=== PATIENT | female | born 1970 | race American Indian/Alaskan Native ===

== ENCOUNTER 2017-01-01 18:09 | Emergency (ER) | payer MEDICAID, OTHER ==
[2017-01-01 18:23] VITALS: TEMP 98.9; O2SAT 96; BMI 27.3
--- NOTE | 2017-01-01 18:54 | ED PDOC ---
Arrival/HPI <Mario Cedeno - Last Filed: 01/01/17 18:44> <Fran Atkins - Last Filed: 01/01/17 20:43> - General Chief Complaint: Back Pain Time Seen by Provider: 01/01/17 18:13 - History of Present Illness Narrative History of Present Illness (Text): 01/01/17 18:44 46 year old female with a pmh of Graves disease (s/p thyroidectomy) and IDDM. She is complaining of right sided low back pain that starts above her hip that radiates down the back of her thigh into the back of her calf. The pain started about a week ago but has been progressively gotten worse. The pain is throbbing in nature but becomes sharp with any kind of movement. The patient has experienced this pain in the past. One to two years ago, the patient was seen at [facility] in [place] for the same problem. She got a CT and MRI, which she reports, showed that she had a bulging disc in her low back. The patient is only in town due to her mother's . She has an appointment with her primary care doctor back home on Wednesday at 11am. She has taken Advil and Tylenol for the pain, but neither helped. She took one Percocet given to her by her aunt that allowed her to walk for a few hours. Patient is coming into the emergency room because she can not tolerate the pain any longer. (Mario Cedeno) Associated Symptoms (Text): 01/01/17 19:02 Seen and examined with the resident. Our history and physical exam reveals a woman who complains of approximately one week history of right lower back pain with radiation into her right buttocks and right lower extremity posteriorly. There is some numbness but no weakness. No bowel or bladder dysfunction. She is here visiting from [place] for a . She reports that approximately one year ago she had an MRI which showed a positive HNP. No injury or trauma. No abdominal pain nausea vomiting or diarrhea. No genitourinary symptoms. ( Fran Atkins) Past Medical History - Provider Review Nursing Documentation Reviewed: Yes - Infectious Disease Hx of Infectious Diseases: None - Reproductive Menopause: Yes - Cardiac Hx Cardiac Disorders: Yes Hx Hypertension: Yes - Pulmonary Hx Respiratory Disorders: No - Neurological Hx Neurological Disorder: No Hx Alzheimer's Disease: No - HEENT Hx HEENT Disorder: No - Renal Hx Renal Disorder: No - Endocrine/Metabolic Hx Endocrine Disorders: Yes Hx Diabetes Mellitus Type 2: Yes Hx Hypothyroidism: Yes - Hematological/Oncological Hx Blood Disorders: Yes Hx Cancer: Yes (cx of the vulva) - Integumentary Hx Dermatological Disorder: No - Musculoskeletal/Rheumatological Hx Musculoskeletal Disorders: Yes Hx Back Pain: Yes - Gastrointestinal Hx Gastrointestinal Disorders: Yes Other/Comment: multiple abdominal surgeries on adhesions in the stomach - Genitourinary/Gynecological Hx Genitourinary Disorders: No - Psychiatric Hx Psychophysiologic Disorder: No Hx Substance Use: No - Surgical History Hx Appendectomy: Yes Hx Cholecystectomy: Yes Hx Thyroidectomy: Yes (total) Other/Comment: multiple abdominal sx for adhesions on the stomach - Anesthesia Hx Anesthesia: Yes Hx Anesthesia Reactions: No <Mario Cedeno - Last Filed: 01/01/17 18:44> Family/Social History - Physician Review Nursing Documentation Reviewed: Yes Family/Social History: Unknown Family HX Smoking Status: Current Some Days Smoker Hx Alcohol Use: No Hx Substance Use: No <Mario Cedeno - Last Filed: 01/01/17 18:44> Allergies/Home Meds <Mario Cedeno - Last Filed: 01/01/17 18:44> <Fran Atkins - Last Filed: 01/01/17 20:43> Allergies/Adverse Reactions: Allergies aspirin Allergy (Intermediate, Verified 01/01/17 18:23) URTICARIA Penicillins Allergy (Intermediate, Verified 01/01/17 18:23) RASH Home Medications: Home Meds Medication Instructions Recorded Confirmed Enalapril/Hydrochlorothiazide 10 mg PO DAILY 01/01/17 01/01/17 [Enalapril-Hctz 10-25 mg Tablet] Insulin Aspart, Recombinant 20 units SC DAILY 01/01/17 01/01/17 [Novolog] Insulin Glargine, Recombina 12 units SC HS 01/01/17 01/01/17 [Lantus] Levothyroxine [Synthroid] 1 tab PO DAILY 01/01/17 01/01/17 Review of Systems - Physician Review All systems were reviewed & negative as marked: Yes - Review of Systems Constitutional: absent: Fatigue, Fevers Respiratory: absent: SOB, Cough Cardiovascular: absent: Chest Pain, Edema, Calf Pain Gastrointestinal: absent: Abdominal Pain, Constipation, Diarrhea, Nausea, Vomiting Genitourinary Female: absent: Dysuria, Frequency Musculoskeletal: Back Pain (right sided, low back pain) Skin: Normal Neurological: Headache (hx of migraines) Endocrine: absent: Diaphoresis Psychiatric: Depression (mother passed this week, in town for ) <Mario Cedeno - Last Filed: 01/01/17 18:44> Physical Exam Vital Signs Reviewed: Yes Temperature: Afebrile Blood Pressure: Hypertensive (believed to be 2/2 pain) Pulse: Tachycardic (believed to be 2/2 pain) Respiratory Rate: Normal Appearance: Positive for: Well-Appearing, Non-Toxic, Comfortable Pain Distress: None Mental Status: Positive for: Alert and Oriented X 3 - Systems Exam Head: Present: Atraumatic, Normocephalic Extroacular Muscles: Present: EOMI Conjunctiva: Present: Normal Mouth: Present: Moist Mucous Membranes. No: Dry Nose (External): Present: Atraumatic Nose (Internal): No: Normal Inspection Neck: Present: Normal Range of Motion. No: JVD Respiratory/Chest: Present: Clear to Auscultation. No: Respiratory Distress, Accessory Muscle Use Cardiovascular: Present: Regular Rate and Rhythm Abdomen: No: Tenderness, Distention, Peritoneal Signs Back: Present: Pain with Leg Raise (pain on right side with leg b/l; never pain on left side). No: CVA Tenderness, Midline Tenderness, Paraspinal Tenderness Upper Extremity: Present: Normal Inspection, NORMAL PULSES. No: Edema Lower Extremity: Present: Normal Inspection, NORMAL PULSES, Capillary Refill < 2 s. No: Edema, CALF TENDERNESS, Tenderness Neurological: Present: GCS=15 Skin: Present: Warm, Dry, Normal Color Psychiatric: Present: Alert, Oriented x 3, Normal Insight, Normal Concentration <Mario Cedeno - Last Filed: 01/01/17 18:44> Medical Decision Making <Mario Cedeno - Last Filed: 01/01/17 18:44> <Fran Atkins - Last Filed: 01/01/17 20:43> ED Course and Treatment: 01/01/17 19:00 Known hx of Sciatica and bulging disc -Given flexeril and Torodal for pain while in ED Dispo: Home. Patient is going to keep her appointment and follow up with her PMD on Wednesday, Jan. at 11am (Mario Cedeno) 01/01/17 19:11 Patient Seen With Resident: In agreement with resident note and more details are present in their notes. Patient was seen and evaluated with resident, came up with plan and treatment together. 01/01/17 19:39 Pain is unchanged. Morphine was ordered. 01/01/17 20:37 Symptoms are markedly improved after morphine and Benadryl. 01/01/17 20:38 Blood pressure is improved to 131/77. Discharged home accompanied by . Follow-up with PMD. Follow up in ER as needed. (Fran Atkins) - Medication Orders Current Medication Orders: Discontinued Medications Cyclobenzaprine HCl (Flexeril) 10 mg PO STAT STA Stop: 01/01/17 18:51 Last Admin: 01/01/17 19:16 Dose: 10 mg Diphenhydramine HCl (Benadryl) 50 mg PO STAT STA Stop: 01/01/17 19:50 Last Admin: 01/01/17 19:54 Dose: Not Given Non-Admin Reason: Patient Refused Diphenhydramine HCl (Benadryl) Confirm Administered Dose 50 mg .ROUTE .STK-MED ONE Stop: 01/01/17 19:58 Last Admin: 01/01/17 19:59 Dose: 50 mg Ketorolac Tromethamine (Toradol) 60 mg IM ONCE ONE Stop: 01/01/17 18:48 Last Admin: 01/01/17 19:17 Dose: 60 mg Morphine Sulfate (Morphine) 4 mg IM STAT STA Stop: 01/01/17 19:40 Last Admin: 01/01/17 19:58 Dose: 4 mg Disposition/Present on Arrival - Present on Arrival History of DVT/PE: No History of Uncontrolled Diabetes: No Urinary Catheter: No History of Decub. Ulcer: No History Surgical Site Infection Following: None <Mario Cedeno - Last Filed: 01/01/17 18:44> - Present on Arrival Any Indicators Present on Arrival: No History of DVT/PE: No History of Uncontrolled Diabetes: No Urinary Catheter: No History of Decub. Ulcer: No - Disposition Have Diagnosis and Disposition been Completed?: Yes Disposition Time: 20:39 Patient Plan: Discharge <Fran Atkins - Last Filed: 01/01/17 20:43> - Disposition Diagnosis: Sciatica Disposition: HOME/ ROUTINE Condition: IMPROVED Discharge Instructions (ExitCare): Sciatica (ED), Lumbar Radiculopathy (ED) Additional Instructions: Rest and moist heat. Follow-up with PMD. Follow up in ER as needed. Prescriptions: Dexamethasone [Decadron] 4 mg PO DAILY #5 tab Cyclobenzaprine [Flexeril] 5 mg PO Q8 #15 tab oxyCODONE/Acetaminophen [Percocet 5/325 mg Tab] 1 ea PO Q6 #15 tab Referrals: [facility] Thania Rhodes, [Primary Care Provider] - Follow up with primary Forms: [employer] (Ecuadorean)
[2017-01-01] MEDS ORDERED: Morphine 4 mg/ml ISec IM STA (19:39)
[2017-01-01] MEDS ORDERED: DiphenhydrAMINE 50 mg/ml Inj ONE (19:57)
[2017-01-01 20:39] VITALS: BP 131/77; PULSE 88; RESP 18
== END 2017-01-01 21:05 | disposition home or self-care (01) ==
LOC: ED 18:09
DX: M54.30 Sciatica, unspecified side (principal)
CPT/HCPCS: 96372; 99283; J1200; J1885; J2270

== ENCOUNTER 2017-03-04 09:26 | Emergency (ER) | payer MEDICAID ==
[2017-03-04 09:27] VITALS: BMI 27.3
[2017-03-04 09:54] VITALS: TEMP 98.3; O2SAT 100
[2017-03-04] MEDS ORDERED: HYDROmorphone 0.5 mg/0.5 ml ISec IM STA (10:21)
--- NOTE | 2017-03-04 10:22 | ED PDOC ---
Arrival/HPI - General Chief Complaint: Back Pain Time Seen by Provider: 03/04/17 09:34 Historian: Patient, Partner - History of Present Illness Narrative History of Present Illness (Text): 03/04/17 10:15 46 year old female with a pmh of , chronic lower back pain, Graves disease (s/p thyroidectomy) and IDDM, presents to this ED c/o right lower back pain x 1 day. Patient stated she tripped and fell down this morning. Patient denies weakness, paresthesias, GI/ incontinence, saddle anesthesia, urinary retention , or abnormal gait. Time/Duration: Other (1 day) Quality: Aching Context: Home Past Medical History - Provider Review Nursing Documentation Reviewed: Yes - Infectious Disease Hx of Infectious Diseases: None - Cardiac Hx Cardiac Disorders: Yes - Pulmonary Hx Respiratory Disorders: No - Neurological Hx Neurological Disorder: No Hx Alzheimer's Disease: No - HEENT Hx HEENT Disorder: No - Renal Hx Renal Disorder: No - Endocrine/Metabolic Hx Endocrine Disorders: Yes Hx Diabetes Mellitus Type 2: Yes Hx Hypothyroidism: Yes - Hematological/Oncological Hx Blood Disorders: Yes Hx Cancer: Yes (cx of the vulva) - Integumentary Hx Dermatological Disorder: No - Musculoskeletal/Rheumatological Hx Musculoskeletal Disorders: Yes Hx Back Pain: Yes - Gastrointestinal Hx Gastrointestinal Disorders: Yes Other/Comment: multiple abdominal surgeries on adhesions in the stomach - Genitourinary/Gynecological Hx Genitourinary Disorders: No - Psychiatric Hx Psychophysiologic Disorder: No Hx Substance Use: No - Surgical History Hx Appendectomy: Yes Hx Cholecystectomy: Yes Hx Thyroidectomy: Yes (total) Other/Comment: multiple abdominal sx for adhesions on the stomach - Anesthesia Hx Anesthesia: Yes Hx Anesthesia Reactions: No Family/Social History - Physician Review Nursing Documentation Reviewed: Yes Family/Social History: Other (noncontributory) Smoking Status: Light Smoker < 10 Cigarettes Daily Hx Alcohol Use: No Hx Substance Use: No Allergies/Home Meds Allergies/Adverse Reactions: Allergies aspirin Allergy (Intermediate, Verified 03/04/17 09:43) URTICARIA Penicillins Allergy (Intermediate, Verified 03/04/17 09:43) RASH Home Medications: Home Meds Medication Instructions Recorded Confirmed Enalapril/Hydrochlorothiazide 10 mg PO DAILY 01/01/17 03/04/17 [Enalapril-Hctz 10-25 mg Tablet] Insulin Aspart, Recombinant 20 units SC DAILY 01/01/17 03/04/17 [Novolog] Insulin Glargine, Recombina 12 units SC HS 01/01/17 03/04/17 [Lantus] Levothyroxine [Synthroid] 1 tab PO DAILY 01/01/17 03/04/17 Cyclobenzaprine [Flexeril] 5 mg PO PRN PRN 03/04/17 03/04/17 Review of Systems - Review of Systems Constitutional: Normal. absent: Fatigue, Weight Change, Fevers Eyes: Normal ENT: Normal Respiratory: Normal. absent: SOB, Cough Cardiovascular: Normal. absent: Chest Pain, Palpitations Gastrointestinal: Normal. absent: Abdominal Pain, Nausea, Vomiting Genitourinary Female: Normal. absent: Dysuria, Frequency, Hematuria Musculoskeletal: Back Pain Skin: Normal. absent: Rash, Pruritis, Skin Lesions, Laceration, Abscess, Ulcer , Cellulitis Neurological: Normal. absent: Headache, Dizziness, Focal Weakness, Gait Changes , Speech Changes, Facial Droop, Disequilibrium, Seizure Endocrine: Normal Hemo/Lymphatic: Normal Psychiatric: Normal Physical Exam Vital Signs Temp Pulse Resp BP Pulse Ox 03/04/17 12:24 81 18 125/74 100 03/04/17 11:10 89 18 128/79 100 03/04/17 09:38 98.3 F 92 H 16 132/82 100 Temperature: Afebrile Blood Pressure: Normal Pulse: Regular Respiratory Rate: Normal Appearance: Positive for: Well-Appearing, Non-Toxic, Comfortable Pain Distress: None Mental Status: Positive for: Alert and Oriented X 3 - Systems Exam Head: Present: Atraumatic, Normocephalic Pupils: Present: PERRL Extroacular Muscles: Present: EOMI Conjunctiva: Present: Normal Mouth: Present: Moist Mucous Membranes Neck: Present: Normal Range of Motion, Trachea Midline. No: Meningeal Signs, MIDLINE TENDERNESS Respiratory/Chest: Present: Clear to Auscultation, Good Air Exchange. No: Respiratory Distress, Accessory Muscle Use Cardiovascular: Present: Regular Rate and Rhythm, Normal S1, S2. No: Murmurs Abdomen: Present: Normal Bowel Sounds. No: Tenderness, Distention, Peritoneal Signs Back: Present: Paraspinal Tenderness (mild muscle spasm, and tenderness on right paravertebral area. No skin rash, erythema,. or ecchymosis. No vertebral point tenderness. No vertebral step off.). No: CVA Tenderness, Midline Tenderness Upper Extremity: Present: Normal Inspection, Normal ROM, NORMAL PULSES, Neurovascularly Intact, Capillary Refill < 2s. No: Cyanosis, Edema Lower Extremity: Present: Normal Inspection, NORMAL PULSES, Normal ROM, Neurovascularly Intact, Capillary Refill < 2 s. No: Edema, CALF TENDERNESS Neurological: Present: GCS=15, CN II-XII Intact, Speech Normal, Motor Func Grossly Intact, Normal Sensory Function, Normal Cerebellar Funct, Gait Normal, Memory Normal Skin: Present: Warm, Dry, Normal Color. No: Rashes Psychiatric: Present: Alert, Oriented x 3, Normal Insight, Normal Concentration Medical Decision Making ED Course and Treatment: 03/04/17 12:24 Patient is resting comfortably, back pain has improved significantly, no fever , no bony tenderness, no numbness, no weakness, or abdominal pain. Patient is ambulatory in the emergency department with no signs of discomfort. Patient was advised to follow up with their physician in 1-2 days. Patient refused to be admitted in the hospital. Patient has no neuro focal deficits. pain management name is recommended. 03/04/17 12:31 Patient was recommended not to drive or operate machinery when taking Percocet or Valium 03/04/17 12:32 I checked [place] [employer]ICIAN AWARE. Patient [place] ref[place] was from the [place] of [place]. Patient is out of state. Re-evaluation Time: 12:26 Reassessment Condition: Re-examined, Improved - Lab Interpretations Lab Results: Lab Results 03/04/17 10:28: Urine Color Dark yellow, Urine Appearance Cloudy, Urine pH 6.0, Ur Specific [place] 1.025, Urine Protein 30 H, Urine Glucose (UA) Negative, Urine Ketones Trace H, Urine Blood Negative, Urine Nitrate Negative, Urine Bilirubin Small H, Urine Urobilinogen 2.0 H, Ur Leukocyte Esterase Trace H, Urine RBC Negative, Urine WBC 0 - 2, Ur Epithelial Cells 10 - 12, Calcium Oxalate Crystal Small, Urine Bacteria Small Interpretation: No clinic. lab abnormalty - RAD Interpretation Narrative RAD Interpretations (Text): 03/04/17 12:26 Lumbar spine x-rays: No farcture or subluxation Radiology Orders: 03/04/17 10:20 LS SPINE WITH OBL > 18 YRS OLD [RAD] Stat - Medication Orders Current Medication Orders: Discontinued Medications Diazepam (Valium) 5 mg PO ONCE ONE PRN Reason: Protocol Stop: 03/04/17 10:19 Last Admin: 03/04/17 10:33 Dose: 5 mg Hydromorphone HCl (Dilaudid) 0.25 mg IM STAT STA Stop: 03/04/17 10:22 Last Admin: 03/04/17 10:36 Dose: 0.25 mg MAR Pain Assessment Document 03/04/17 10:36 MS (Rec: 03/04/17 10:37 MS [id number]) Pain Reassessment Is this a pain reassessment? No Sleep Is patient sleeping during reassessment? No Presence of Pain Presence of Pain Yes Pain Scale Used Pain Scale Used Numeric Location Upper or Lower Lower Pain Location Body Site Back Description Description Constant Pain Behavior Moaning Guarding Irritability Aggravating Factors Changing Position Alleviating Factors/Management Medication Techniques Position Change Alleviating Factors Medication IM Administration Charges Document 03/04/17 10:36 MS (Rec: 03/04/17 10:37 MS [id number]) Injection Site MAR Injection Site Left Deltoid Charges for Administration # of IM Administrations 1 Ondansetron HCl (Zofran Odt) 4 mg PO STAT STA Stop: 03/04/17 11:21 Last Admin: 03/04/17 11:39 Dose: 4 mg Oxycodone/Acetaminophen (Percocet 5/325 Mg Tab) 1 tab PO STAT STA Stop: 03/04/17 11:21 Last Admin: 03/04/17 11:39 Dose: 1 tab MAR Pain Assessment Document 03/04/17 11:39 MS (Rec: 03/04/17 11:40 MS [id number]) Pain Reassessment Is this a pain reassessment? Yes Sleep Is patient sleeping during reassessment? No Presence of Pain Presence of Pain Yes Pain Scale Used Pain Scale Used Numeric Location Upper or Lower Lower Pain Location Body Site Back Description Description Constant Intensity of Pain at present 4 Pain Behavior Guarding Irritability Aggravating Factors Changing Position Alleviating Factors/Management Medication Techniques Position Change Alleviating Factors Position Change Pain not relieved and LIP/MD was Yes notified Disposition/Present on Arrival - Present on Arrival Any Indicators Present on Arrival: No History of DVT/PE: No History of Uncontrolled Diabetes: No Urinary Catheter: No History of Decub. Ulcer: No History Surgical Site Infection Following: None - Disposition Have Diagnosis and Disposition been Completed?: Yes Diagnosis: Chronic low back pain with right-sided sciatica Disposition: HOME/ ROUTINE Disposition Time: 12:27 Patient Plan: Discharge Patient Problems: Current Active Problems Problem Status Onset Chronic low back pain with right-sided sciatica Acute Condition: GOOD Discharge Instructions (ExitCare): Chronic Back Pain (ED) Additional Instructions: Call pain management doctor for follow up visit in 1-2 days. Take medication as instructed with food. return to emergency if new symptoms arise, or worsening symptoms. Call clinic if unable to contact pain management doctor. DO NOT DRIVE OR OPERATE MACHINERY WHEN YOU TAKING PERCOCET OR VALIUM Prescriptions: diaZEpam [Valium] 5 mg PO DAILY PRN #5 tab PRN Reason: Pain, Severe (8-10) oxyCODONE/Acetaminophen [Percocet 5/325 mg Tab] 1 ea PO BID PRN #5 tab PRN Reason: Pain, Severe (8-10) Referrals: PCP,NO [Primary Care Provider] - Follow up with primary Dexter Renteria MD [Staff Provider] - Follow up with primary [facility] [Outside] - Follow up with primary [facility] [place] [Outside] - Follow up with primary Forms: [employer] (Albanian)
[2017-03-04 10:40] LABS: URINE BILIRUBIN SMALL (NEGATIVE); URINE BLOOD NEGATIVE (NEGATIVE); URINE GLUCOSE (UA) NEGATIVE (NEGATIVE); URINE KETONE TRACE mg/dL (NEGATIVE); URINE LEUKOCYTE ESTERASE TRACE Leu/uL (NEGATIVE); URINE PROTEIN 30 mg/dL (<30 mg/dL)
[2017-03-04 10:49] LABS: URINE APPEARANCE CLOUDY (CLEAR); URINE COLOR DARK YELLOW (YELLOW)
[2017-03-04 10:58] LABS: URINE BACTERIA SMALL (NEG); URINE CALCIUM OXALATE CRYSTALS SMALL /hpf; URINE RBC NEGATIVE /hpf (0-2); URINE WBC 0 - 2 /hpf (0-6)
[2017-03-04 11:10] VITALS: RESP 18
[2017-03-04] MEDS ORDERED: Oxycodone/Acetaminophen 5/325 mg Tab PO STA (11:20)
--- NOTE | 2017-03-04 11:49 | RAD ---
PROCEDURE: Radiographs of the Lumbar Spine. HISTORY: pain COMPARISON: No prior. FINDINGS: BONES: Normal alignment. No listhesis. No fracture. DISC SPACES: Unremarkable. OTHER FINDINGS: None. IMPRESSION: Unremarkable radiographs of the lumbar spine.
[2017-03-04 12:24] VITALS: BP 125/74; PULSE 81
== END 2017-03-04 12:49 | disposition home or self-care (01) ==
LOC: ED 09:26
DX: G89.29 Other chronic pain (principal); M54.41 Lumbago with sciatica, right side
CPT/HCPCS: 72110; 81001; 87086; 96372; 99283; J1170

== ENCOUNTER 2017-06-07 18:15 | Observation (INO) | payer MEDICAID ==
[2017-06-07 18:29] VITALS: BMI 23.5
[2017-06-07] MEDS ORDERED: Morphine 4 mg/ml ISec IVP STA (18:35)
[2017-06-07] MEDS ORDERED: Sodium Chloride 0.9% 1,000 ML IV STA (18:35)
[2017-06-07] MEDS ORDERED: DiphenhydrAMINE 50 mg/ml Inj IVP STA (19:44)
[2017-06-07 20:13] LABS: BASO # 0.03 K/mm3 (0.0-2.0); BASO % 0.5 % (0.0-3.0); EOS % 0.7 % (1.5-5.0); GRAN # 3.01 (1.4-6.5); GRAN % 53.4 % (50.0-68.0); HEMOGLOBIN 11.2 g/dL (12.0-16.0); LYMPH # 2.2 (1.2-3.4); LYMPH % 38.9 % (22.0-35.0); MEAN CELL VOLUME 102.1 fl (80.0-105.0); MEAN CORPUSCULAR HEMOGLOBIN 32.8 pg (25.0-35.0); MEAN CORPUSCULAR HGB CONC 32.2 g/dl (31.0-37.0); MEAN PLATELET VOLUME 9.7 fl (7.0-11.0); MONO # 0.4 (0.1-0.6); MONO % 6.5 % (1.0-6.0); RBC 3.41 10^6/uL (3.5-6.1); RED CELL DISTRIBUTION WIDTH 14.7 % (11.5-14.5); WHITE BLOOD COUNT 5.7 10^3/ul (4.5-11.0)
[2017-06-07 20:23] LABS: ALB/GLOB RATIO 1.3 (1.1-1.8); ALBUMIN 3.7 g/dL (3.0-4.8); ALT/SGPT 70 U/L (7-56); AST/SGOT 37 U/L (14-36); BLOOD UREA NITROGEN 17 mg/dL (7-21); CALCIUM 9.5 mg/dL (8.4-10.5); GFR AFRICAN-AMERICAN > 60; GFR NON-AFRICAN AMERICAN > 60; LIPASE 59 U/L (23-300)
[2017-06-07 20:46] LABS: INR 1.73 (0.93-1.08); PARTIAL THROMBOPLASTIN TIME 31.9 Seconds (25.1-36.5)
[2017-06-07] MEDS ORDERED: Iohexol 350 MG/100 ML VIAL ONE (21:05)
--- NOTE | 2017-06-07 22:58 | ED PDOC ---
Arrival/HPI - General Chief Complaint: Flu-like Symptoms Time Seen by Provider: 06/07/17 18:29 Historian: Patient - History of Present Illness Narrative History of Present Illness (Text): 06/07/17 22:46 46yo female with PMHx of hypertension, IDDM, Graves disease, hypercholestrolemia who present with complaint of generalized body ache, abdominal pain and multiple episodes of vomiting and diarrhea. States the nonbloody/bilious vomiting started last night. The pain started today and she have diarrhea x 3 today. She denies sick contact, chest pain, SOB, fever., chills, travel, any other complaint. She is s/p appendectomy . Past Medical History - Provider Review Nursing Documentation Reviewed: Yes - Infectious Disease Hx of Infectious Diseases: None - Cardiac Hx Cardiac Disorders: Yes - Pulmonary Hx Respiratory Disorders: No - Neurological Hx Neurological Disorder: No Hx Alzheimer's Disease: No - HEENT Hx HEENT Disorder: No - Renal Hx Renal Disorder: No - Endocrine/Metabolic Hx Endocrine Disorders: Yes Hx Diabetes Mellitus Type 2: Yes Hx Hypothyroidism: Yes - Hematological/Oncological Hx Blood Disorders: Yes Hx Cancer: Yes (cx of the vulva) - Integumentary Hx Dermatological Disorder: No - Musculoskeletal/Rheumatological Hx Musculoskeletal Disorders: Yes Hx Back Pain: Yes - Gastrointestinal Hx Gastrointestinal Disorders: Yes Other/Comment: multiple abdominal surgeries on adhesions in the stomach - Genitourinary/Gynecological Hx Genitourinary Disorders: No - Psychiatric Hx Psychophysiologic Disorder: No Hx Substance Use: No - Surgical History Hx Appendectomy: Yes Hx Cholecystectomy: Yes Hx Thyroidectomy: Yes (total) Other/Comment: multiple abdominal sx for adhesions on the stomach - Anesthesia Hx Anesthesia: Yes Hx Anesthesia Reactions: No Family/Social History - Physician Review Nursing Documentation Reviewed: Yes Family/Social History: Unknown Family HX Smoking Status: Current Some Days Smoker Hx Alcohol Use: No Hx Substance Use: No Allergies/Home Meds Allergies/Adverse Reactions: Allergies aspirin Allergy (Intermediate, Verified 06/07/17 18:29) URTICARIA Penicillins Allergy (Intermediate, Verified 06/07/17 18:29) RASH Home Medications: Home Meds Medication Instructions Recorded Confirmed Enalapril/Hydrochlorothiazide 10 mg PO DAILY 01/01/17 03/04/17 [Enalapril-Hctz 10-25 mg Tablet] Insulin Aspart, Recombinant 20 units SC DAILY 01/01/17 03/04/17 [Novolog] Insulin Glargine, Recombina 12 units SC HS 01/01/17 03/04/17 [Lantus] Levothyroxine [Synthroid] 1 tab PO DAILY 01/01/17 03/04/17 Cyclobenzaprine [Flexeril] 5 mg PO PRN PRN 03/04/17 03/04/17 Review of Systems - Physician Review All systems were reviewed & negative as marked: Yes - Review of Systems Constitutional: Fatigue Eyes: Normal ENT: Normal Respiratory: Normal Cardiovascular: Normal Gastrointestinal: Abdominal Pain, Diarrhea, Nausea, Vomiting. absent: Constipation, Hematochezia, Hematemesis Genitourinary Female: Normal Musculoskeletal: Normal Skin: Normal Neurological: Normal Endocrine: Normal Hemo/Lymphatic: Normal Psychiatric: Normal Physical Exam Vital Signs Reviewed: Yes Vital Signs Temp Pulse Resp BP Pulse Ox 06/07/17 19:03 99.3 F 60 18 138/94 H 95 Temperature: Afebrile Blood Pressure: Normal Pulse: Regular Respiratory Rate: Normal Appearance: Positive for: Well-Appearing, Non-Toxic, Comfortable Pain Distress: None Mental Status: Positive for: Alert and Oriented X 3 - Systems Exam Head: Present: Atraumatic, Normocephalic Pupils: Present: PERRL Extroacular Muscles: Present: EOMI Conjunctiva: Present: Normal Mouth: Present: Moist Mucous Membranes Neck: Present: Normal Range of Motion Respiratory/Chest: Present: Clear to Auscultation, Good Air Exchange. No: Respiratory Distress, Accessory Muscle Use Cardiovascular: Present: Regular Rate and Rhythm, Normal S1, S2. No: Murmurs Abdomen: Present: Tenderness (Epigastric tenderness), Normal Bowel Sounds, Scars (Old healed surgical scar noted), Other (Soft). No: Distention, Peritoneal Signs, Rebound, Guarding, McBurney's Point Tender, Rovsing's Sign Present Back: Present: Normal Inspection Upper Extremity: Present: Normal Inspection. No: Cyanosis, Edema Lower Extremity: Present: Normal Inspection. No: Edema Neurological: Present: GCS=15, CN II-XII Intact, Speech Normal Skin: Present: Warm, Dry, Normal Color. No: Rashes Psychiatric: Present: Alert, Oriented x 3, Normal Insight, Normal Concentration Medical Decision Making ED Course and Treatment: 06/08/17 00:18 Pt in ED for stated history. She was teary on presentation in ED. Lab was nonspecific. Abdominal pelvic CT was ordered secondary to patient persistent pain control after medication was given. Abdominal/Pelvic CT IMPRESSION: Mild cardiomegaly with small pericardial effusion; small amount of ascites, no free air; limited evaluation of solid viscera due to bolus timing, no definite solid visceral abnormality; cholecystectomy; prior bowel surgeries, no bowel obstruction On re evaluation pt continued to cry and complain of pain. All result was DW eli pt. She will be placed on OBS for further evaluation Case was DANIELITO Enciso and he accepted pt for admission. - Lab Interpretations Lab Results: 06/07/17 20:03 06/07/17 20:03 Lab Results 06/07/17 21:10: Lactic Acid 1.9 06/07/17 20:03: Beta HCG, Quant < 2.39 06/07/17 20:03: Sodium 139, Potassium 4.6, Chloride 101, Carbon Dioxide 27, Anion Gap 16, BUN 17, Creatinine 0.8, Est GFR ( Amer) > 60, Est GFR (Non- Af Amer) > 60, Random Glucose 128 H, Calcium 9.5, Total Bilirubin 1.8 H, AST 37 H, ALT 70 H, Alkaline Phosphatase 86, Total Protein 6.5, Albumin 3.7, Globulin 2.8, Albumin/Globulin Ratio 1.3, Lipase 59 06/07/17 20:03: PT 20.0 H, INR 1.73 H, APTT 31.9 06/07/17 20:03: WBC 5.7, RBC 3.41 L, Hgb 11.2 L, Hct 34.8 L, MCV 102.1, MCH 32.8 , MCHC 32.2, RDW 14.7 H, Plt Count 264, MPV 9.7, Gran % 53.4, Lymph % (Auto) 38.9 H, Bullock % (Auto) 6.5 H, Eos % (Auto) 0.7 L, Baso % (Auto) 0.5, Gran # 3.01 , Lymph # (Auto) 2.2, Bullock # (Auto) 0.4, Eos # (Auto) 0.0, Baso # (Auto) 0.03 06/07/17 19:20: Influenza Typ A,B (EIA) Negative for flu a/b - RAD Interpretation Radiology Orders: 06/07/17 20:23 ABD & PELVIS W/O PO OR IV CONT [CT] Stat - Medication Orders Current Medication Orders: Discontinued Medications Diphenhydramine HCl (Benadryl) 25 mg IVP STAT STA Stop: 06/07/17 19:45 Last Admin: 06/07/17 20:00 Dose: 25 mg IVP Administration Document 06/07/17 20:00 OCS (Rec: 06/07/17 20:36 OCS [id number]) Charges for Administration # of IVP Administrations 1 Famotidine (Pepcid) 20 mg IVP STAT STA Stop: 06/07/17 18:36 Last Admin: 06/07/17 19:25 Dose: 20 mg IVP Administration Document 06/07/17 19:25 [email or web address] (Rec: 06/07/17 19:[id number]) Charges for Administration # of IVP Administrations 1 Sodium Chloride (Sodium Chloride 0.9%) 1,000 mls @ 1,000 mls/hr IV .Q1H STA Stop: 06/07/17 19:34 Last Admin: 06/07/17 19:25 Dose: 1,000 mls/hr eMAR Start Stop Document 06/07/17 19:25 [email or web address] (Rec: 06/07/17 19:[id number]) Intravenous Solution Start Date 06/07/17 Start Time 19:25 End Date 06/07/17 Morphine Sulfate (Morphine) 4 mg IVP STAT STA Stop: 06/07/17 18:36 Last Admin: 06/07/17 19:25 Dose: 4 mg MAR Pain Assessment Document 06/07/17 19:25 [email or web address] (Rec: 06/07/17 19:25 [id number] Pain Reassessment Is this a pain reassessment? No Sleep Is patient sleeping during reassessment? No Presence of Pain Presence of Pain Yes Pain Scale Used Pain Scale Used Numeric Location Pain Location Body Site Generalized Description Description Constant Intensity of Pain at present 8 Pain Behavior Facial Grimacing Aggravating Factors Changing Position Alleviating Factors/Management Position Change Techniques Alleviating Factors Medication IVP Administration Document 06/07/17 19:25 [email or web address] (Rec: 06/07/17 19:[id number]) Charges for Administration # of IVP Administrations 1 Ondansetron HCl (Zofran Inj) 4 mg IVP STAT STA Stop: 06/07/17 18:36 Last Admin: 06/07/17 19:25 Dose: 4 mg IVP Administration Document 06/07/17 19:25 [facility] (Rec: 06/07/17 19:[id number]) Charges for Administration # of IVP Administrations 1 Disposition/Present on Arrival - Present on Arrival Any Indicators Present on Arrival: No History of DVT/PE: No History of Uncontrolled Diabetes: No Urinary Catheter: No History of Decub. Ulcer: No History Surgical Site Infection Following: None - Disposition Have Diagnosis and Disposition been Completed?: Yes Diagnosis: Intractable abdominal pain Disposition: HOSPITALIZED Disposition Time: 00:15 Condition: FAIR Referrals: Maged Rhodes, [Primary Care Provider] - Follow up with primary Forms: [employer] (E[place]ian)
--- NOTE | 2017-06-07 23:44 | CT ---
EXAM: CT Abdomen and Pelvis Without Intravenous Contrast EXAM DATE/TIME: 06/07/2017 8:23 PM CLINICAL HISTORY: 46 years old, female; Pain; Abdominal pain; Acute; Prior surgery; Surgery type: Abd surgery for adhesions; Additional info: Abdominal pain. Iv infiltrated after 20cc. Pt had CT done 2x days ago TECHNIQUE: Axial computed tomography images of the abdomen and pelvis without intravenous contrast. All CT scans at this facility use one or more dose reduction techniques, viz.: automated exposure control; ma/kV adjustment per patient size (including targeted exams where dose is matched to indication; i.e. head); or iterative reconstruction technique. Coronal and sagittal reformatted images were created and reviewed. COMPARISON: There are no prior studies for comparison. FINDINGS: Artifacts: Motion artifact degrades image quality. Lower thorax: Heart is mildly enlarged. There is a small pericardial effusion. There is atelectasis/scarring at the lung bases. ABDOMEN: Liver: Bolus timing limits evaluation of the liver. Gallbladder and bile ducts: Gallbladder is absent. Common duct is prominent. Pancreas: Pancreas is mildly atrophic. Spleen: unremarkable Adrenals: There is bilateral adrenal thickening. Kidneys and ureters: There is nonspecific perinephric stranding and fluid.Kidneys and ureters are otherwise unremarkable. Stomach and bowel: Stomach is almost empty. Rotation is normal. Small bowel is mildly distended with fluid and air. There is an enteral anastomosis in the right lower quadrant. Distal small bowel is mildly distended with fluid. Terminal ileum is unremarkable. Appendix is not visualized.Colon is incompletely distended which limits evaluation. There are multiple bowel anastomoses. Appendix: See stomach and bowel PELVIS: Bladder: unremarkable Reproductive: Uterus and adnexal structures are unremarkable. ABDOMEN and PELVIS: Intraperitoneal space: There is a small amount of free fluid in the pelvis. There is free fluid in the upper abdomen. There is no free air. Bones/joints: There are no acute osseous abnormalities. Soft tissues: There is body wall edema. Vasculature: There are vascular calcifications. Lymph nodes: There is shotty adenopathy. IMPRESSION: Mild cardiomegaly with small pericardial effusion; small amount of ascites, no free air; limited evaluation of solid viscera due to bolus timing, no definite solid visceral abnormality; cholecystectomy; prior bowel surgeries, no bowel obstruction Additional nonemergent findings as described above.
[2017-06-08] MEDS ORDERED: Sodium Chloride 0.9% 1,000 ML IV SCH (01:45)
[2017-06-08] MEDS: Morphine 2 mg/ml ISec SC PRN ×2 (02:13→06:32)
--- NOTE | 2017-06-08 02:43 | CP.PCM.HP ---
<Kerwin Brewer - Last Filed: 06/08/17 03:12> History of Present Illness - History of Present Illness History of Present Illness: 46 year old female with past medical history of CHF, fluid around heart, Graves disease, DM, vulvar cancer presents with abdominal pain and body aches. Patient states that she has had sharp left upper abdominal pain rated 10/10 since Wednesday. She took laxatives but did not get any relief. In addition, patient states she has vomiting numerous time, non bloody and non bilious. Patient also states she has had body aches all over and needs medication for pain. She denies eating any new type of food, or being around anyone that was sick. Patient denies chest pain, shortness of breath, fever, chills, sore throat or any other complaints at this time. PMH: CHF, fluid around heart, Graves disease, DM, vulvar cancer PSH: appendicitis, gall bladder removal, scar tissue removal, thyroid removed Allergies: Aspirin, Penicillin Social: 2 cigarettes a week, denies alcohol or illicit drug use Meds: See MAR Family hx: none Present on Admission - Present on Admission Any Indicators Present on Admission: No Review of Systems - Constitutional Constitutional: absent: Chills, Fever, Headache, Weight Loss, Weakness - EENT Eyes: absent: Blurred Vision, Change in Vision - Cardiovascular Cardiovascular: absent: Chest Pain, Dyspnea - Respiratory Respiratory: absent: Cough, Dyspnea - Gastrointestinal Gastrointestinal: Abdominal Pain, Nausea, Vomiting. absent: Diarrhea - Musculoskeletal Musculoskeletal: Arthralgias. absent: Numbness, Tingling - Neurological Neurological: absent: Tingling Past Patient History - Infectious Disease Hx of Infectious Diseases: None - Past Social History Smoking Status: Current Some Days Smoker - CARDIAC Hx Cardiac Disorders: Yes - PULMONARY Hx Respiratory Disorders: No - NEUROLOGICAL Hx Neurological Disorder: No Hx Alzheimer's Disease: No - HEENT Hx HEENT Problems: No - RENAL Hx Chronic Kidney Disease: No - ENDOCRINE/METABOLIC Hx Endocrine Disorders: Yes Hx Diabetes Mellitus Type 2: Yes Hx Hypothyroidism: Yes - HEMATOLOGICAL/ONCOLOGICAL Hx Blood Disorders: Yes Hx Cancer: Yes (cx of the vulva) - INTEGUMENTARY Hx Dermatological Problems: No - MUSCULOSKELETAL/RHEUMATOLOGICAL Hx Musculoskeletal Disorders: Yes Hx Back Pain: Yes - GASTROINTESTINAL Hx Gastrointestinal Disorders: Yes Other/Comment: multiple abdominal surgeries on adhesions in the stomach - GENITOURINARY/GYNECOLOGICAL Hx Genitourinary Disorders: No - PSYCHIATRIC Hx Psychophysiologic Disorder: No Hx Substance Use: No - SURGICAL HISTORY Hx Appendectomy: Yes Hx Cholecystectomy: Yes Hx Thyroidectomy: Yes (total) Other/Comment: multiple abdominal sx for adhesions on the stomach - ANESTHESIA Hx Anesthesia: Yes Hx Anesthesia Reactions: No Meds Allergies/Adverse Reactions: Allergies Allergy/AdvReac Type Severity Reaction Status Date / Time aspirin Allergy Intermediate URTICARIA Verified 06/07/17 18:29 Penicillins Allergy Intermediate RASH Verified 06/07/17 18:29 Physical Exam - Constitutional Appears: Non-toxic Additional comments: crying in pain - Head Exam Head Exam: NORMOCEPHALIC - Eye Exam Eye Exam: EOMI, Normal appearance, PERRL - ENT Exam ENT Exam: Mucous Membranes Moist - Neck Exam Neck exam: Negative for: Lymphadenopathy, Tenderness - Respiratory Exam Respiratory Exam: Clear to Auscultation Bilateral, NORMAL BREATHING PATTERN - Cardiovascular Exam Cardiovascular Exam: REGULAR RHYTHM - GI/Abdominal Exam GI & Abdominal Exam: Soft, Tenderness. absent: Distended Additional comments: LUQ tenderness on palpation - Extremities Exam Extremities exam: Positive for: pedal edema, pedal pulses present - Neurological Exam Neurological exam: Alert, Oriented x3 Results - Vital Signs Recent Vital Signs: Last Vital Signs Temp 98.4 F 06/08/17 00:19 Pulse 89 06/08/17 00:19 Resp 18 06/08/17 00:19 BP 135/91 H 06/08/17 00:19 Pulse Ox 96 06/08/17 00:19 - Labs Result Diagrams: 06/07/17 20:03 06/07/17 20:03 Assessment & Plan - Assessment and Plan (Free Text) Assessment: 46 year old female with past medical history of CHF, fluid around heart, Graves disease, DM, vulvar cancer presents with abdominal pain and body aches. Patient states that she has had sharp left upper abdominal pain rated 10/10 since Wednesday. Plan: 1. Intractable Abdominal Pain -EKG pending official read -AST: 37 -ALT: 70 -T bili: 1.8 -NPO -NS@100 -Abdominal CT: no bowel obtsruction, small pericardial effusion, small ascites -GI consulted, Moe, follow recs -Morphine PRN -lipase and amylase pending 2. DM -continue home insulin 3. CHF -continue home meds GI/DVT -protonix -Heparin <Lotus Enciso - Last Filed: 06/08/17 04:40> Results - Vital Signs Recent Vital Signs: Last Vital Signs Temp 98.4 F 06/08/17 00:19 Pulse 89 06/08/17 00:19 Resp 18 06/08/17 02:06 BP 135/91 H 06/08/17 00:19 Pulse Ox 96 06/08/17 00:19 - Labs Result Diagrams: 06/07/17 20:03 06/07/17 20:03 Attending/Attestation - Attestation I have personally seen and examined this patient.: Yes I have fully participated in the care of the patient.: Yes I have reviewed all pertinent clinical information: Yes Notes (Text): 06/08/17 04:40 Patient was seen when she was in "ISO" room in the ER. Agree with history , physical examination, assessment and plan.
[2017-06-08] MEDS ORDERED: DiphenhydrAMINE 50 mg/ml Inj IVP ONE (03:31)
[2017-06-08] MEDS ORDERED: Pantoprazole 40 mg EC Tab PO SCH (06:00)
--- NOTE | 2017-06-08 07:19 | CP.PCM.CON ---
History of Present Illness - History of Present Illness History of Present Illness: GI consult note for Dr Chan's service Reason for consult: intractable abdominal pain Patient is a 46 y/o with PMHx of pericardial fluid, grave's disease s/p thyroidectomy, vulvar cancer s/p surgery and chemo, DM, hypothyroidism, CHF, chronic constipation who presented to [facility] with worsening periumbilical abdominal pain for 1 week. GI is consulted to evaluate. Patient states the abdominal pain is non radiating. Admits to prior history of abdominal pain prior to a weak ago, had lysis of adhesion in the past due to pain. Denies nausea, vomiting or diarrhea. Admits to constipation since having appendectomy years ago, has bowel movement once a week, last bowel movement was 2 days ago, and admits to straining. Denies laxative use. Denies recent gianna loss. States she had colonoscopy 6 years ago when she was diagnosed with vulvar cancer it was normal. Ad mits to being non compliant with her synthroid. PMHx: pericardial fluid, grave's disease s/p thyroidectomy, vulvar cancer s/p surgery and chemo, DM, hypothyroidism, CHF, chronic constipation PSHx: vulvar ca removal, appendectomy, cholecystectomy, lysis of adhesion, colectomy, thyroidectomy FMHx: Denies family history of cancer Social: smokes 2 cigarettes per weeks, denies alcohol or illicit drug use. Allergy: asa, and penicillins. Home meds: as per chart. Review of Systems - Review of Systems All systems: reviewed and no additional remarkable complaints except Review of Systems: 12 point ROS reviewed, all negative except as per HPI. Past Patient History - Infectious Disease Hx of Infectious Diseases: None - Past Social History Smoking Status: Current Some Days Smoker Alcohol: None Drugs: Denies Home Situation {Lives}: With Family - CARDIAC Hx Cardiac Disorders: Yes - PULMONARY Hx Respiratory Disorders: No - NEUROLOGICAL Hx Neurological Disorder: No Hx Alzheimer's Disease: No - HEENT Hx HEENT Problems: No - RENAL Hx Chronic Kidney Disease: No - ENDOCRINE/METABOLIC Hx Endocrine Disorders: Yes Hx Diabetes Mellitus Type 2: Yes Hx Hypothyroidism: Yes - HEMATOLOGICAL/ONCOLOGICAL Hx Blood Disorders: Yes Hx Cancer: Yes (cx of the vulva) - INTEGUMENTARY Hx Dermatological Problems: No - MUSCULOSKELETAL/RHEUMATOLOGICAL Hx Musculoskeletal Disorders: Yes Hx Back Pain: Yes - GASTROINTESTINAL Hx Gastrointestinal Disorders: Yes Other/Comment: multiple abdominal surgeries on adhesions in the stomach - GENITOURINARY/GYNECOLOGICAL Hx Genitourinary Disorders: No - PSYCHIATRIC Hx Psychophysiologic Disorder: No Hx Substance Use: No - SURGICAL HISTORY Hx Appendectomy: Yes Hx Cholecystectomy: Yes Hx Thyroidectomy: Yes (total) Other/Comment: multiple abdominal sx for adhesions on the stomach - ANESTHESIA Hx Anesthesia: Yes Hx Anesthesia Reactions: No Meds Allergies/Adverse Reactions: Allergies Allergy/AdvReac Type Severity Reaction Status Date / Time aspirin Allergy Intermediate URTICARIA Verified 06/07/17 18:29 Penicillins Allergy Intermediate RASH Verified 06/07/17 18:29 - Medications Medications: Current Medications Acetaminophen (Tylenol 325mg Tab) 650 mg PO Q6H PRN PRN Reason: Fever >100.4 F Heparin Sodium (Porcine) (Heparin) 5,000 units SC Q12 [facility] PRN Reason: Protocol Hydrochlorothiazide (Hydrodiuril) 25 mg PO DAILY [facility] Sodium Chloride (Sodium Chloride 0.9%) 1,000 mls @ 100 mls/hr IV .Q10H [facility] Last Admin: 06/08/17 03:00 Dose: 100 mls/hr Insulin Detemir (Levemir) 6 unit SC ACBHS [facility] Insulin Human Lispro (Humalog) 20 units SC ACB [facility] Insulin Human Lispro (Humalog Med) 0 units SC ACHS [facility] PRN Reason: Protocol Levothyroxine Sodium (Synthroid) 150 mcg PO ACB [facility] Lisinopril (Zestril) 10 mg PO DAILY [facility] Morphine Sulfate (Morphine) 2 mg SC Q4H PRN PRN Reason: Pain, severe (8-10) Last Admin: 06/08/17 06:32 Dose: 2 mg Ondansetron HCl (Zofran Inj) 4 mg IVP Q4H PRN PRN Reason: Nausea/Vomiting Pantoprazole Sodium (Protonix Ec Tab) 40 mg PO 0600 [facility] Last Admin: 06/08/17 06:31 Dose: 40 mg Physical Exam - Constitutional Appears: No Acute Distress - Head Exam Head Exam: ATRAUMATIC, NORMAL INSPECTION, NORMOCEPHALIC - Eye Exam Eye Exam: EOMI, Normal appearance, PERRL. absent: Scleral icterus - ENT Exam ENT Exam: Mucous Membranes Moist - Neck Exam Neck exam: Positive for: Normal Inspection - Respiratory Exam Respiratory Exam: Clear to Auscultation Bilateral, NORMAL BREATHING PATTERN. absent: Rales, Rhonchi, Wheezes, Respiratory Distress, Stridor - Cardiovascular Exam Cardiovascular Exam: REGULAR RHYTHM, +S1, +S2. absent: Systolic Murmur - GI/Abdominal Exam GI & Abdominal Exam: Normal Bowel Sounds, Soft. absent: Distended, Firm, Guarding, Rigid, Tenderness Additional comments: + multiple abdominal scars - Extremities Exam Extremities exam: Positive for: normal inspection. Negative for: pedal edema, tenderness - Back Exam Back exam: NORMAL INSPECTION - Neurological Exam Neurological exam: Alert, Oriented x3 - Psychiatric Exam Psychiatric exam: Normal Affect, Normal Mood - Skin Skin Exam: Dry, Intact, Normal Color, Warm Results - Vital Signs Recent Vital Signs: Last Vital Signs Temp 98.4 F 06/08/17 00:19 Pulse 89 06/08/17 00:19 Resp 18 06/08/17 02:06 BP 135/91 H 06/08/17 00:19 Pulse Ox 96 06/08/17 00:19 - Labs Result Diagrams: 06/07/17 20:03 06/07/17 20:03 Assessment & Plan - Assessment and Plan (Free Text) Assessment: Patient is a 46 y/o with PMHx of pericardial fluid, grave's disease s/p thyroidectomy, vulvar cancer s/p surgery and chemo, DM, hypothyroidism, CHF, chronic constipation who presented to [facility] with worsening periumbilical abdominal pain for [address] abdomen and pelvis with mild ascites. Transamintis on labs. 1- Abdominal pain likely due to adhesion versus opioid induced constipation versus hypothyroidism 2- Transamintis 3- Plan: - Avoid opioids - Bowel regiment - hep panel - Consider checking TSH, free T4 - Date & Time Date: 06/08/17 Time: 06:45
[2017-06-08] MEDS ORDERED: Insulin Detemir 100 units/ml Vial (Levemir) SC SCH (07:30)
[2017-06-08] MEDS ORDERED: Insulin Lispro 1 UNITS/0.01 ML SC SCH (07:30)
[2017-06-08] MEDS ORDERED: Insulin Lispro (humaLOG) MEDIUM Coverage SC SCH (07:30)
[2017-06-08] MEDS ORDERED: Levothyroxine 150 MCG TAB PO SCH (07:30)
[2017-06-08 08:06] VITALS: BP 121/82; PULSE 82; RESP 20; TEMP 97.6; O2SAT 99
--- NOTE | 2017-06-08 12:28 | CARD ---
APPROVED REPORT EKG Measurement Heart [id number] <Conclusion> Normal sinus rhythm Possible Left atrial enlargement Borderline ECG
--- NOTE | 2017-06-08 13:01 | CP.PCM.DIS ---
<Brii Castro - Last Filed: 06/08/17 12:56> Provider - Provider Date of Admission: 06/08/17 00:14 Attending physician: Annamaria Banda MD Time Spent in preparation of Discharge (in minutes): 35 Hospital Course - Lab Results Lab Results: Most Recent Lab Values WBC 5.7 10^3/ul (4.5-11.0) 06/07/17 20:03 RBC 3.41 10^6/uL (3.5-6.1) L 06/07/17 20:03 Hgb 11.2 g/dL (12.0-16.0) L 06/07/17 20:03 Hct 34.8 % (36.0-48.0) L 06/07/17 20:03 MCV 102.1 fl (80.0-105.0) 06/07/17 20:03 MCH 32.8 pg (25.0-35.0) 06/07/17 20:03 MCHC 32.2 g/dl (31.0-37.0) 06/07/17 20:03 RDW 14.7 % (11.5-14.5) H 06/07/17 20:03 Plt Count 264 10^3/uL (120.0-450.0) 06/07/17 20:03 MPV 9.7 fl (7.0-11.0) 06/07/17 20:03 Gran % 53.4 % (50.0-68.0) 06/07/17 20:03 Lymph % (Auto) 38.9 % (22.0-35.0) H 06/07/17 20:03 [place] % (Auto) 6.5 % (1.0-6.0) H 06/07/17 20:03 Eos % (Auto) 0.7 % (1.5-5.0) L 06/07/17 20:03 Baso % (Auto) 0.5 % (0.0-3.0) 06/07/17 20:03 Gran # 3.01 (1.4-6.5) 06/07/17 20:03 Lymph # (Auto) 2.2 (1.2-3.4) 06/07/17 20:03 [place] # (Auto) 0.4 (0.1-0.6) 06/07/17 20:03 Eos # (Auto) 0.0 (0.0-0.7) 06/07/17 20:03 Baso # (Auto) 0.03 K/mm3 (0.0-2.0) 06/07/17 20:03 PT 20.0 SECONDS (9.4-12.5) H 06/07/17 20:03 INR 1.73 (0.93-1.08) H 06/07/17 20:03 APTT 31.9 Seconds (25.1-36.5) 06/07/17 20:03 Sodium 139 mmol/L (132-148) 06/07/17 20:03 Potassium 4.6 mmol/L (3.6-5.0) 06/07/17 20:03 Chloride 101 mmol/L (98-107) 06/07/17 20:03 Carbon Dioxide 27 mmol/L (21-33) 06/07/17 20:03 Anion Gap 16 (10-20) 06/07/17 20:03 BUN 17 mg/dL (7-21) 06/07/17 20:03 Creatinine 0.8 mg/dl (0.7-1.2) 06/07/17 20:03 Est GFR ( Amer) > 60 06/07/17 20:03 Est GFR (Non-Af Amer) > 60 06/07/17 20:03 Random Glucose 128 mg/dL (70-110) H 06/07/17 20:03 Lactic Acid 1.9 mmol/L (0.7-2.1) 06/07/17 21:10 Calcium 9.5 mg/dL (8.4-10.5) 06/07/17 20:03 Total Bilirubin 1.8 mg/dL (0.2-1.3) H 06/07/17 20:03 AST 37 U/L (14-36) H 06/07/17 20:03 ALT 70 U/L (7-56) H 06/07/17 20:03 Alkaline Phosphatase 86 U/L (38-126) 06/07/17 20:03 Total Protein 6.5 g/dL (5.8-8.3) 06/07/17 20:03 Albumin 3.7 g/dL (3.0-4.8) 06/07/17 20:03 Globulin 2.8 gm/dL 06/07/17 20:03 Albumin/Globulin Ratio 1.3 (1.1-1.8) 06/07/17 20:03 Lipase 59 U/L (23-300) 06/07/17 20:03 Beta HCG, Quant < 2.39 mIU/mL (0-6.15) 06/07/17 20:03 Influenza Typ A,B (EIA) Negative for flu a/b (NEGATIVE) 06/07/17 19:20 - Hospital Course Hospital Course: 46 year old female with past medical history of CHF, fluid around heart, Graves disease, DM, vulvar cancer presents with abdominal pain and body aches. In addition, patient states she has vomiting numerous time, non bloody and non bilious. EKG done in ED showed normal sinus rhythm. Abdominal CT showed no bowel obstruction, small pericardial effusion, small ascites. She was started on IVF and GI was consulted. She was given pain medication and her chronic co morbidities were managed. This morning patient signed out against medical advise due to personal reasons. The risk and benefits were discussed with the patient and she understand and wishes to sign out AMA. Discharge Exam - Head Exam Head Exam: ATRAUMATIC, NORMAL INSPECTION, NORMOCEPHALIC - Eye Exam Eye Exam: Normal appearance - Respiratory Exam Respiratory Exam: Clear to PA & Lateral, NORMAL BREATHING PATTERN, UNREMARKABLE. absent: Rales, Rhonchi - Cardiovascular Exam Cardiovascular Exam: REGULAR RHYTHM - Neurological Exam Neurological exam: Alert, Oriented x3 Discharge Plan - Follow Up Plan Condition: FAIR Disposition: AGAINST MEDICAL ADVICE <Annamaria Banda - Last Filed: 06/08/17 14:04> Provider - Provider Date of Admission: 06/08/17 00:14 Attending physician: Annamaria Banda MD Hospital Course - Lab Results Lab Results: Most Recent Lab Values WBC 5.7 10^3/ul (4.5-11.0) 06/07/17 20:03 RBC 3.41 10^6/uL (3.5-6.1) L 06/07/17 20:03 Hgb 11.2 g/dL (12.0-16.0) L 06/07/17 20:03 Hct 34.8 % (36.0-48.0) L 06/07/17 20:03 MCV 102.1 fl (80.0-105.0) 06/07/17 20:03 MCH 32.8 pg (25.0-35.0) 06/07/17 20: MCHC 32.2 g/dl (31.0-37.0) 06/07/17 20:03 RDW 14.7 % (11.5-14.5) H 06/07/17 20:03 Plt Count 264 10^3/uL (120.0-450.0) 06/07/17 20:03 MPV 9.7 fl (7.0-11.0) 06/07/17 20:03 Gran % 53.4 % (50.0-68.0) 06/07/17 20:03 Lymph % (Auto) 38.9 % (22.0-35.0) H 06/07/17 20:03 [place] % (Auto) 6.5 % (1.0-6.0) H 06/07/17 20:03 Eos % (Auto) 0.7 % (1.5-5.0) L 06/07/17 20:03 Baso % (Auto) 0.5 % (0.0-3.0) 06/07/17 20: Gran # 3.01 (1.4-6.5) 06/07/17 20: Lymph # (Auto) 2.2 (1.2-3.4) 06/07/17 20:03 [place] # (Auto) 0.4 (0.1-0.6) 06/07/17 20:03 Eos # (Auto) 0.0 (0.0-0.7) 06/07/17 20:03 Baso # (Auto) 0.03 K/mm3 (0.0-2.0) 06/07/17 20:03 PT 20.0 SECONDS (9.4-12.5) H 06/07/17 20:03 INR 1.73 (0.93-1.08) H 06/07/17 20:03 APTT 31.9 Seconds (25.1-36.5) 06/07/17 20:03 Sodium 139 mmol/L (132-148) 06/07/17 20:03 Potassium 4.6 mmol/L (3.6-5.0) 06/07/17 20:03 Chloride 101 mmol/L (98-107) 06/07/17 20:03 Carbon Dioxide 27 mmol/L (21-33) 06/07/17 20:03 Anion Gap 16 (10-20) 06/07/17 20:03 BUN 17 mg/dL (7-21) 06/07/17 20:03 Creatinine 0.8 mg/dl (0.7-1.2) 06/07/17 20:03 Est GFR ( Amer) > 60 06/07/17 20:03 Est GFR (Non-Af Amer) > 60 06/07/17 20:03 Random Glucose 128 mg/dL (70-110) H 06/07/17 20:03 Lactic Acid 1.9 mmol/L (0.7-2.1) 06/07/17 21:10 Calcium 9.5 mg/dL (8.4-10.5) 06/07/17 20:03 Total Bilirubin 1.8 mg/dL (0.2-1.3) H 06/07/17 20:03 AST 37 U/L (14-36) H 06/07/17 20:03 ALT 70 U/L (7-56) H 06/07/17 20:03 Alkaline Phosphatase 86 U/L (38-126) 06/07/17 20:03 Total Protein 6.5 g/dL (5.8-8.3) 06/07/17 20:03 Albumin 3.7 g/dL (3.0-4.8) 06/07/17 20:03 Globulin 2.8 gm/dL 06/07/17 20:03 Albumin/Globulin Ratio 1.3 (1.1-1.8) 06/07/17 20:03 Lipase 59 U/L (23-300) 06/07/17 20:03 Beta HCG, Quant < 2.39 mIU/mL (0-6.15) 06/07/17 20:03 Influenza Typ A,B (EIA) Negative for flu a/b (NEGATIVE) 06/07/17 19:20 Attending/Attestation - Attestation I have personally seen and examined this patient.: Yes I have fully participated in the care of the patient.: Yes I have reviewed all pertinent clinical information, including history, physical exam and plan: Yes
== END 2017-06-08 08:25 | disposition left against medical advice (07) ==
LOC: ED 18:15 → ERH 06-08 00:14 → 5RSO 06-08 02:09
PROVIDERS: ADMIT Internal Medicine; ATTEND Internal Medicine
DX: R10.9 Unspecified abdominal pain (principal); I11.0 Hypertensive heart disease with heart failure; I50.9 Heart failure, unspecified; I31.3 Pericardial effusion (noninflammatory); E11.9 Type 2 diabetes mellitus without complications; Z79.4 Long term (current) use of insulin; Z79.899 Other long term (current) drug therapy; Z85.44 Personal history of malignant neoplasm of other female genital organs; Z90.49 Acquired absence of other specified parts of digestive tract; E78.00 Pure hypercholesterolemia, unspecified; Z88.6 Allergy status to analgesic agent; Z88.0 Allergy status to penicillin; R40.2412 Glasgow coma scale score 13-15, at arrival to emergency department
CPT/HCPCS: 74176; 80053; 83605; 83690; 84702; 85025; 85610; 85730; 87804; 93005; 96372; 96374; 96375; 96376; 99285; G0378; J1200; J2270; J2405; J7040; Q9967